=== PATIENT | female | born 1990 | race Caucasian/White ===

== ENCOUNTER 2017-05-23 19:44 | Emergency (ER) | payer OTHER ==
[~2017-05-23] VITALS: Ht 165.1 cm; Wt 86.2 kg
--- OUTSIDE RECORDS SUMMARY | 2017-05-23 19:55 | External Medical Summary Rpt | CCD ---
Author Author , ANNE Hernández ANNE Address Unknown Phone [email or web address] Purpose Continuity of Care Document - 03-17-2017 through 2016 Problems Code Diagnosis DOS Provider Status N91.2 Amenorrhea, unspecified O03.9 Complete or unspecified spontaneous without complicatio n O20.9 Hemorrhage in early , unspecified Results Labs Lab Lab Date Result Refere Interp Status Commen Order Detail nces retati t Range on B-HCG SerPl-aCnc (04-20-2017 16:02) Comment: HCG Expected Values: Comment: Comment: Non females: ? less than 5 mIU/mL Comment: Comment: Males: ? less than 5 mIU/mL Comment: Comment: females: Comment: 0-1 Weeks Gestation ?5-50 Comment: 1-2 Weeks Gestation ?50-500 Comment: 2-3 Weeks Gestation ?100-5000 Comment: 3-4 Weeks Gestation ?[phone] Comment: 4-5 Weeks Gestation ?[phone] Comment: 5-6 Weeks Gestation ?[phone] Comment: 6-8 Weeks Gestation ?[phone] Comment: 2-3 Months Gestation ? [phone] Comment: Comment: ? Note: ?If a value is between 5-25 mIU/mL recommend Comment: repeat testing and clinical correlation. HGC 230.00 complet Intact+ 017 mIU/mL ed B 16:02 SerPl-a Cnc B-HCG SerPl-aCnc (04-17-2017 16:43) Comment: HCG Expected Values: Comment: Comment: Non females: ? less than 5 mIU/mL Comment: Comment: Males: ? less than 5 mIU/mL Comment: Comment: females: Comment: 0-1 Weeks Gestation ?5-50 Comment: 1-2 Weeks Gestation ?50-500 Comment: 2-3 Weeks Gestation ?100-5000 Comment: 3-4 Weeks Gestation ?[phone] Comment: 4-5 Weeks Gestation ?[phone] Comment: 5-6 Weeks Gestation ?[phone] Comment: 6-8 Weeks Gestation ?75971-614058 Comment: 2-3 Months Gestation ? [phone] Comment: Comment: ? Note: ?If a value is between 5-25 mIU/mL recommend Comment: repeat testing and clinical correlation. [facility] -22-2 62.00 complet Intact+ 017 mIU/mL ed B 16:43 SerPl-a Cnc B-HCG SerPl-aCnc (03-27-2017 15:50) Comment: HCG Expected Values: Comment: Comment: Non females: ? less than 5 mIU/mL Comment: Comment: Males: ? less than 5 mIU/mL Comment: Comment: females: Comment: 0-1 Weeks Gestation ?5-50 Comment: 1-2 Weeks Gestation ?50-500 Comment: 2-3 Weeks Gestation ?100-5000 Comment: 3-4 Weeks Gestation ?[phone] Comment: 4-5 Weeks Gestation ?[phone] Comment: 5-6 Weeks Gestation ?02180-494414 Comment: 6-8 Weeks Gestation ?[phone] Comment: 2-3 Months Gestation ? [phone] Comment: Comment: ? Note: ?If a value is between 5-25 mIU/mL recommend Comment: repeat testing and clinical correlation. [facility] < 5.00 complet Intact+ 017 mIU/mL ed B 15:50 SerPl-a Cnc B-HCG SerPl-aCnc (03-20-2017 16:11) Comment: HCG Expected Values: Comment: Comment: Non females: ? less than 5 mIU/mL Comment: Comment: Males: ? less than 5 mIU/mL Comment: Comment: females: Comment: 0-1 Weeks Gestation ?5-50 Comment: 1-2 Weeks Gestation ?50-500 Comment: 2-3 Weeks Gestation ?100-5000 Comment: 3-4 Weeks Gestation ?[phone] Comment: 4-5 Weeks Gestation ?[phone] Comment: 5-6 Weeks Gestation ?21391-759730 Comment: 6-8 Weeks Gestation ?40912-403253 Comment: 2-3 Months Gestation ? [phone] Comment: Comment: ? Note: ?If a value is between 5-25 mIU/mL recommend Comment: repeat testing and clinical correlation. [facility] 10.00 complet Intact+ 017 mIU/mL ed B 16:11 SerPl-a Cnc B-HCG SerPl-aCnc (03-18-2017 11:58) Comment: HCG Expected Values: Comment: Comment: Non females: ? less than 5 mIU/mL Comment: Comment: Males: ? less than 5 mIU/mL Comment: Comment: females: Comment: 0-1 Weeks Gestation ?5-50 Comment: 1-2 Weeks Gestation ?50-500 Comment: 2-3 Weeks Gestation ?100-5000 Comment: 3-4 Weeks Gestation ?[phone] Comment: 4-5 Weeks Gestation ?[phone] Comment: 5-6 Weeks Gestation ?73528-042544 Comment: 6-8 Weeks Gestation ?95248-976028 Comment: 2-3 Months Gestation ? 97478-136432 Comment: Comment: ? Note: ?If a value is between 5-25 mIU/mL recommend Comment: repeat testing and clinical correlation. HGC 33.00 complet Intact+ 017 mIU/mL ed B 11:58 SerPl-a Cnc Bacteria Ur Cult (03-17-2017 21:31) Bacteri 3258422 complet a XXX 017 9 ed Aerobe 21:31 Normal Cult iqra SCT Comment: 50,000-60,000 CFU/mL Normal Urogenital Iqra UA Dipstick Pnl Ur (03-17-2017 21:31) Urobili 0.2 0.2 - complet nogen 017 E.U./dL 1.0 ed Ur Ql 21:31 E.U./dL Strip Nitrite [id number] Negativ complet Ur Ql 017 09 e ed Strip 21:31 Negativ e SCT Leukocy 2517738 Negativ complet te 017 04 e ed esteras 21:31 Small e Ur Ql SCT Strip.a uto Prot Ur 2167109 Negativ complet Ql 017 09 e ed Strip 21:31 Negativ e SCT Hgb Ur 0808045 Negativ complet Ql 017 01 e ed Strip.a 21:31 Large uto SCT Bilirub 0448497 Negativ complet Ur Ql 017 09 e ed Strip 21:31 Negativ e SCT Ketones 9836177 Negativ complet Ur Ql 017 09 e ed Strip 21:31 Negativ e SCT Glucose 4364875 Negativ complet Ur 017 09 e ed Strip-m 21:31 Negativ Cnc e SCT Sp Gr <= 1.001-1 complet Ur 017 1.005 .030 ed Strip 21:31 pH Ur 6.5 5.0-8.0 complet Strip.a 017 ed uto 21:31 Clarity 3398248 Clear complet Ur 017 01 ed 21:31 Clear SCT Color 8786029 Yellow, complet Ur 017 09 Straw ed 21:31 Yellow color SCT UA Microscopic Pnl # Ur Auto (03-17-2017 21:31) Ref lab Manual complet test 017 Light ed method 21:31 Microsc opy Hyaline None 0-6 complet Casts 017 Seen ed Ur Ql 21:31 /LPF Auto Squamou 3-6 None complet s 017 /HPF Seen, ed #/area 21:31 0-2 UrnS HPF Bacteri 7817281 None complet a Ur Ql 017 06 Seen, ed Auto 21:31 Trace Trace SCT /HPF WBC Ur 6-12 None complet Ql Auto 017 /HPF Seen ed 21:31 RBC # 21-30 None complet Ur 017 /HPF Seen, ed 21:31 0-2
--- OUTSIDE RECORDS SUMMARY | 2017-05-23 19:55 | External Medical Summary Rpt | CCD ---
Author Author , ANNE Hernández ANNE Address Unknown Phone [email or web address] Purpose Continuity of Care Document - 03-17-2017 [...] Weeks Gestation ?100-5000 Comment: 3-4 Weeks Gestation ?[phone] Comment: 4-5 Weeks Gestation ?[phone] Comment: 5-6 Weeks Gestation ?22660-829806 Comment: 6-8 Weeks Gestation ?98733-476683 Comment: 2-3 Months Gestation ? [phone] Comment: Comment: ? Note: ?If a value [...] Weeks Gestation ?100-5000 Comment: 3-4 Weeks Gestation ?[phone] Comment: 4-5 Weeks Gestation ?[phone] Comment: 5-6 Weeks Gestation ?70288-366707 Comment: 6-8 Weeks Gestation ?14665-349016 Comment: 2-3 Months Gestation ? [phone] Comment: Comment: ? Note: ?If a value is between 5-25 mIU/mL recommend Comment: repeat testing and clinical correlation. [facility] -22-2 62.00 complet Intact+ 017 mIU/mL ed B 16:43 SerPl-a Cnc B-HCG SerPl-aCnc (03-27-2017 15:50) Comment: HCG Expected Values: Comment: Comment: Non females: ? less than 5 mIU/mL Comment: Comment: Males: ? less than 5 mIU/mL Comment: Comment: females: Comment: 0-1 Weeks Gestation ?5-50 Comment: 1-2 Weeks Gestation ?50-500 Comment: 2-3 Weeks Gestation ?100-5000 Comment: 3-4 Weeks Gestation ?[phone] Comment: 4-5 Weeks Gestation ?[phone] Comment: 5-6 Weeks Gestation ?81890-886755 Comment: 6-8 Weeks Gestation ?91802-980834 Comment: 2-3 Months Gestation ? 99588-156429 Comment: Comment: ? Note: ?If a value is between 5-25 mIU/mL recommend Comment: repeat testing and clinical correlation. [facility] < 5.00 complet Intact+ 017 mIU/mL ed B 15:50 SerPl-a Cnc B-HCG SerPl-aCnc (03-20-2017 16:11) Comment: HCG Expected Values: Comment: Comment: Non females: ? less than 5 mIU/mL Comment: Comment: Males: ? less than 5 mIU/mL Comment: Comment: females: Comment: 0-1 Weeks Gestation ?5-50 Comment: 1-2 Weeks Gestation ?50-500 Comment: 2-3 Weeks Gestation ?100-5000 Comment: 3-4 Weeks Gestation ?[phone] Comment: 4-5 Weeks Gestation ?[phone] Comment: 5-6 Weeks Gestation ?74674-964914 Comment: 6-8 Weeks Gestation ?08133-599024 Comment: 2-3 Months Gestation ? [phone] Comment: Comment: ? Note: ?If a value is between 5-25 mIU/mL recommend Comment: repeat testing and clinical correlation. [facility] 10.00 complet Intact+ 017 mIU/mL ed B 16:11 SerPl-a Cnc B-HCG SerPl-aCnc (03-18-2017 11:58) Comment: HCG Expected Values: Comment: Comment: Non females: ? less than 5 mIU/mL Comment: Comment: Males: ? less than 5 mIU/mL Comment: Comment: females: Comment: 0-1 Weeks Gestation ?5-50 Comment: 1-2 Weeks Gestation ?50-500 Comment: 2-3 Weeks Gestation ?100-5000 Comment: 3-4 Weeks Gestation ?[phone] Comment: 4-5 Weeks Gestation ?[phone] Comment: 5-6 Weeks Gestation ?20427-409738 Comment: 6-8 Weeks Gestation ?01169-450303 Comment: 2-3 Months Gestation ? [phone] Comment: Comment: ? Note: ?If a value is between 5-25 mIU/mL recommend Comment: repeat testing and clinical correlation. HGC 33.00 complet Intact+ 017 mIU/mL ed B 11:58 SerPl-a Cnc Bacteria Ur Cult (03-17-2017 21:31) Bacteri [id number] complet a XXX 017 9 ed Aerobe 21:31 Normal Cult iqra SCT Comment: 50,000-60,000 CFU/mL Normal Urogenital Iqra UA Dipstick Pnl Ur (03-17-2017 21:31) Urobili 0.2 0.2 - complet nogen 017 E.U./dL 1.0 ed Ur Ql 21:31 E.U./dL Strip Nitrite 1080295 Negativ complet Ur Ql 017 09 e ed Strip 21:31 Negativ e SCT Leukocy 2294579 Negativ complet te 017 04 e ed esteras 21:31 Small e Ur Ql SCT Strip.a uto Prot Ur 0635472 Negativ complet Ql 017 09 e ed Strip 21:31 Negativ e SCT Hgb Ur 8358025 Negativ complet Ql 017 01 e ed Strip.a 21:31 Large uto SCT Bilirub 1626676 Negativ complet Ur Ql 017 09 e ed Strip 21:31 Negativ e SCT Ketones 3243683 Negativ complet Ur Ql 017 09 e ed Strip 21:31 Negativ e SCT Glucose 1569563 Negativ complet Ur 017 09 e ed Strip-m 21:31 Negativ Cnc e SCT Sp Gr <= 1.001-1 complet Ur 017 1.005 .030 ed Strip 21:31 pH Ur 6.5 5.0-8.0 complet Strip.a 017 ed uto 21:31 Clarity 3207633 Clear complet Ur 017 01 ed 21:31 Clear SCT Color 7071714 Yellow, complet Ur 017 09 Straw ed 21:31 Yellow color SCT UA Microscopic Pnl # Ur Auto (03-17-2017 21:31) Ref lab Manual complet test 017 Light ed method 21:31 Microsc opy Hyaline None 0-6 complet Casts 017 Seen ed Ur Ql 21:31 /LPF Auto Squamou 3-6 None complet s 017 /HPF Seen, ed #/area 21:31 0-2 UrnS HPF Bacteri 8724021 None complet a Ur Ql 017 06 Seen, ed Auto 21:31 Trace Trace SCT /HPF WBC Ur 6-12 None complet Ql Auto 017 /HPF Seen ed 21:31 RBC # 21-30 None complet Ur 017 /HPF Seen, ed 21:31 0-2
--- OUTSIDE RECORDS SUMMARY | 2017-05-23 19:56 | External Medical Summary Rpt | CCD ---
Author Author [employer] Address Unknown Phone Unavailable Purpose Continuity of Care Document - through 2016
--- OUTSIDE RECORDS SUMMARY | 2017-05-23 19:56 | External Medical Summary Rpt | CCD ---
Demographics Preferred Language Panamanian Marital Status Unknown Rastafari Affiliation Unknown Race Unknown Ethnic Group Unknown Author Author , KATHY RODRÍGUEZ Address Unknown Phone Immunization Unable to retrieve immunization data due to connection failure with Immunization Registry. Please try again later.
--- OUTSIDE RECORDS SUMMARY | 2017-05-23 19:56 | External Medical Summary Rpt ---
Author Author ANNE Butler, [employer] Address Unknown Phone Unavailable
--- OUTSIDE RECORDS SUMMARY | 2017-05-23 19:56 | External Medical Summary Rpt | CCD ---
Demographics Preferred Language Filipino Marital Status Unknown Nondenominational Affiliation Unknown Race Unknown Ethnic Group Unknown Author Author , KATHY RODRÍGUEZ Address Unknown Phone Immunization Unable to retrieve immunization data due to connection failure with Immunization Registry. Please try again later.
[2017-05-23] MEDS ORDERED: ASPIRIN 81MG TA81 MG PO (20:03)
[2017-05-23] MEDS ORDERED: NIFEDIPINE ER60 M1 PO (20:04)
[2017-05-23] MEDS ORDERED: ZITHROMAX Z-PA250 M2 PO (20:06)
--- NOTE | 2017-05-23 20:07 | Urgent Treatment Center Report ---
History of Present Issue Date/Time Seen by Provider 05/23/172000 Visit Reason Pt arrived: Presenting Problem: Location if Accident: Onset of symptoms date/time:/ or onset unknown for: Have you (or family members/close friends) recently traveled outside the [place]? If Yes, where/when: Have you had exposure to infectious disease within the past month? TB? Other? Specify: Source patient, RN notes reviewed Exam Limitations no limitations Comment 27-year-old female presents for green nasal congestion, sinus pressure, and cough. Patient states this started 3 weeks ago with the cough and has progressed the last couple days with green nasal congestion and thick green sputum. ALLERGIES Coded Allergies: No Known Allergies (05/23/17) Home Medications Reported Medications ASPIRIN (Aspirin) 81 MG PO DAILY Nifedipine (Nifedipine ER) 60 MG PO ONCE History Medical History General Angina: No ND: No Hypertension? No Hyperlipidemia? No CHF? No COPD? No Asthma? No CVA? No Seizures? No Diabetes? No GB Disease: No MRSA? No TB? No Cancer? No Immunization HX DT/Tetanus UNKNOWN Surgical Hx Previous Surgery?N Social History Alcohol Alcohol: No Review of Systems All Other Systems Reviewed and Negative ENT see HPI, nose discharge, nose congestion. Respiratory see HPI, cough Physical Exam Vital Signs Vital Signs Date Time Temp Pulse Resp B/P Pulse O2 O2 Flow FiO2 Ox Delivery Rate 05/23 1957 98.9 89 20 151/87 98 - WBC >12,000 or <4,000 or 10% bands? 2 or more SIRS Criteria Met? B/P: MAP: Creatinine >2.0? UA output<0.5ml/kg/hr for 2 hrs? Platelet count >100,000? Lactate >2.0mmol/1? INR >1.2 or PTT > than 60 sec? Evidence of Organ Dysfunction? Provider documented clinical suspician of infection? Sepsis Criteria Count: Sepsis Risk: General Appearance normal appearance, WD/WN, no apparent distress Ear, Nose, Throat hearing grossly normal, sinus pain/drainage, nasal congestion, pharyngeal erythema, maxillary sinuses tender to palpation Neck normal inspection, full range of motion Respiratory Status Yes: trachea midline, chest symmetrical, non tender chest. No: respiratory distress. Lung Sounds bilateral: normal breath sounds, lungs clear. Cardiovascular normal exam, regular rate/rhythm, no peripheral edema, no gallop Neurologic alert, normal exam, oriented x 3 Medical Decision Making LABS/Meds/Orders Pt receiving controlled substance in ED? No Departure Departure Time of Disposition 2003 Disposition DC Home or Self Care(routine) Clinical Impression Primary Impression: Sinusitis Qualifiers: Sinusitis location: maxillary Chronicity: acute Recurrence: non- recurrent Qualified Code: J01.00 - Acute maxillary sinusitis, unspecified Condition STABLE Referrals QUEENIE JIMENEZ (Family) Patient Instructions DI for Sinusitis, Sinusitis Additional Instructions Tylenol or ibuprofen as needed for pain or fever Follow-up with primary care this week if no improvement Return or be seen in the ER if symptoms worsen or do not improve Antibiotics as ordered Discharge Counseling Counseled pt/family regarding diagnosis, test results, medications/RX, home care, follow up needs Prescriptions Current Visit Scripts Azithromycin (Zithromax) 250 MG PO DAILY #6 TAB 2 tablets day one 1, then 1 tablet day 2-5 at 2009
[2017-05-23 20:10] VITALS: BP 151/87
[2017-05-23] MEDS ORDERED: FLONASE ALLERG9.9 ML NS (20:10)
== END 2017-05-23 20:11 | disposition home or self-care (01) ==
LOC: UTC 19:44
DX: J01.00 Acute maxillary sinusitis, unspecified (principal)